=== PATIENT | female | born 1945 | race Caucasian/White ===

== ENCOUNTER → 2016-09-17 | Outpatient (CLI) | payer MEDICARE, OTHER ==
[~2016-09-17] MED LIST: AZEL23SP NAS; BISA10SU65 PR; BUTA-177 PO; CALC-118 PO; CELE200C PO; CHOL100018 PO; CIPR500T87 PO; DOCU100C8 PO; ESTR0.5T PO; FENT1PAT7 TD; FERR325T20 PO; FLUT1BLS INH; HYDR2TAB13 PO; LACT1CAP37 PO; LEVO125T PO; LORA0.5T PO; MAGN400T36 PO; OMNIPAQUE 350 MG/ML, 100ML BOTTLE ONE; ONDA4TAB13 PO; PANT40TA3 PO; PRED2.5T PO; PROG100C4 PO; PROM25SU34 RC; SENN8.6T98 PO; UBID200C8 PO
== END | disposition home or self-care (01) ==
LOC: RAD 10:01
PROVIDERS: ATTEND Specialist
DX: C79.51 Secondary malignant neoplasm of bone (principal); C18.0 Malignant neoplasm of cecum; K76.89 Other specified diseases of liver; J84.10 Pulmonary fibrosis, unspecified
CPT/HCPCS: 71260; 74177; Q9967

== ENCOUNTER → 2017-01-28 | Outpatient (CLI) | payer MEDICARE, OTHER ==
[~2017-01-28] MED LIST changes: -HYDR2TAB13 PO; +HYDR2TAB29 PO
== END | disposition home or self-care (01) ==
LOC: CFH 09:42
PROVIDERS: ATTEND Specialist
DX: C79.51 Secondary malignant neoplasm of bone (principal); C18.0 Malignant neoplasm of cecum; M89.8X8 Other specified disorders of bone, other site; J98.4 Other disorders of lung; K76.89 Other specified diseases of liver; N13.30 Unspecified hydronephrosis; N28.1 Cyst of kidney, acquired; D73.89 Other diseases of spleen
CPT/HCPCS: 71260; 74177; Q9967

== ENCOUNTER → 2017-01-28 | Outpatient (CLI) | payer MEDICARE, OTHER ==
[~2017-01-28] MED LIST changes: -OMNIPAQUE 350 MG/ML, 100ML BOTTLE ONE
== END | disposition home or self-care (01) ==
LOC: PETCFH 09:35
PROVIDERS: ATTEND Specialist
DX: C79.51 Secondary malignant neoplasm of bone (principal); C18.0 Malignant neoplasm of cecum
CPT/HCPCS: 78306; A9503

== ENCOUNTER → 2017-02-25 | Outpatient (CLI) | payer MEDICARE, OTHER ==
[~2017-02-25] MED LIST changes: +CHOL100012 PO; -CHOL100018 PO; +DOCU100C33 PO; -DOCU100C8 PO; +FERR325T18 PO; -FERR325T20 PO; +PROG100C16 PO; -PROG100C4 PO
== END | disposition home or self-care (01) ==
LOC: PETCFH 10:02
PROVIDERS: ATTEND Specialist
DX: C18.0 Malignant neoplasm of cecum (principal); M41.86 Other forms of scoliosis, lumbar region
CPT/HCPCS: 78306; A9503

== ENCOUNTER → 2017-02-25 | Outpatient (CLI) | payer MEDICARE, OTHER ==
[~2017-02-25] MED LIST changes: +OMNIPAQUE 350 MG/ML, 100ML BOTTLE ONE
== END | disposition home or self-care (01) ==
LOC: CFH 10:01
PROVIDERS: ATTEND Specialist
DX: C79.51 Secondary malignant neoplasm of bone (principal); C78.2 Secondary malignant neoplasm of pleura; C18.0 Malignant neoplasm of cecum; J84.10 Pulmonary fibrosis, unspecified; K76.89 Other specified diseases of liver; N28.1 Cyst of kidney, acquired; N13.39 Other hydronephrosis; I89.8 Other specified noninfective disorders of lymphatic vessels and lymph nodes; Z98.82 Breast implant status
CPT/HCPCS: 71260; 74177; Q9967

== ENCOUNTER → 2017-03-22 | Outpatient (CLI) | payer MEDICARE, OTHER | END | disposition home or self-care (01) | LOC: RAD 09:35 | PROVIDERS: ATTEND Specialist | DX: C79.51 Secondary malignant neoplasm of bone (principal); C78.2 Secondary malignant neoplasm of pleura; N13.39 Other hydronephrosis; K83.8 Other specified diseases of biliary tract; R16.0 Hepatomegaly, not elsewhere classified; C18.0 Malignant neoplasm of cecum; Z92.3 Personal history of irradiation; Z92.21 Personal history of antineoplastic chemotherapy | CPT/HCPCS: 71260; 74177; 78306; A9503; Q9967 ==

== ENCOUNTER → 2017-04-01 | Outpatient (CLI) | payer MEDICARE, OTHER ==
[~2017-04-01] MED LIST changes: +GADOBUTROL 10 MMOL/10 ML VIAL ONE; -OMNIPAQUE 350 MG/ML, 100ML BOTTLE ONE
== END | disposition home or self-care (01) ==
LOC: RAD 14:09
PROVIDERS: ATTEND Specialist
DX: C79.51 Secondary malignant neoplasm of bone (principal); C18.0 Malignant neoplasm of cecum; M41.86 Other forms of scoliosis, lumbar region; N13.39 Other hydronephrosis; N28.1 Cyst of kidney, acquired; J98.11 Atelectasis; K76.89 Other specified diseases of liver
CPT/HCPCS: 72197; 74183; A9585

== ENCOUNTER → 2017-05-03 | Outpatient (CLI) | payer MEDICARE, OTHER ==
[~2017-05-03] MED LIST changes: -GADOBUTROL 10 MMOL/10 ML VIAL ONE
== END | disposition home or self-care (01) ==
LOC: CFH 14:59
PROVIDERS: ATTEND Specialist
DX: M19.011 Primary osteoarthritis, right shoulder (principal); Z85.038 Personal history of other malignant neoplasm of large intestine; M75.81 Other shoulder lesions, right shoulder